=== PATIENT | male | born 1935 | race Caucasian/White ===

== ENCOUNTER 2017-07-09 12:31 | Emergency (ER) | payer MEDICARE, OTHER ==
--- NOTE | 2017-07-09 13:12 | ED Physician Chart ---
ED Chief Complaint/HPI - Patient Information Date Seen:: 07/09/17 Time Seen:: 13:00 Chief Complaint:: NOSE BLEED FOR 20 MINUTES THIS AM History of Present Illness:: His 82-year-old male presents with a history of nosebleed that started yesterday and recurred again this AM. The bleeding was exclusively from the right side. The episodes lasted an estimated 20 minutes with a fair amount of bright red blood. The bleeding was triggered by a sneeze for both events. Patient reports that he has had mild shortness of breath on exertion for the past 2 weeks. He has also noted wheezing that comes and goes and is being treated with an albuterol inhaler. He has had a cough which is nonproductive but no chest pain, fever, chills, or sweats. He had no episodes of hemoptysis. There is no active bleeding at the present time. Allergies:: Allergies Allergy/AdvReac Type Severity Reaction Status Date / Time No Known Allergies Allergy Verified 07/09/17 12:45 Vitals:: Vital Signs - 8 hr 07/09/17 12:45 Temp 98.5 F HR 74 RR 16 BP 150/70 O2 Sat % 97 ED Review of Systems - Review of Systems General/Constitutional: No fever, No chills, No weakness, No diaphoresis, No edema, No loss of appetite Skin: No skin lesions, No rash Head: No headache, No light-headedness Eyes: No loss of vision, No diplopia, Other (patient has had cataract surgery in his right eye.) ENT: No earache, No sore throat, No tinnitus Neck: No neck pain, No swelling, No stiffness, No mass noted Cardio Vascular: No chest pain, No orthopnea, No edema Pulmonary: SOB, Cough, Other (cough is nonproductive.) GI: No nausea, No vomiting, No diarrhea, No pain G/U: No dysuria, No frequency, No hematuria Musculoskeletal: No bone or joint pain, No back pain, No muscle pain Psychiatric: No depression, No anxiety, No suicidal ideation Hematopoietic: No bruising, No lymphadenopathy Allergic/Immuno: No urticaria, No angioedema Neurological: No syncope, No weakness, No paresthesia, No headache, No seizure, No confusion, No vertigo ED Past Medical History - Past Medical History Past Medical History: HTN, DM, Dyslipidemia, Other (NO HX OF HEART DS OR CHF.) Social History: Non Smoker, No Alcohol, No Drug Use, , Other (lives with his and daughter) Surgical History: other (the patient has had left shoulder surgery and right leg surgery for a dermatologic condition.) Family Medical History - Family Member Maternal History Unknown: Yes ED Physical Exam - Physical Examination General/Constitutional: Awake, Well-developed, well-nourished, Alert, No distress, Non-toxic appearing, Ambulatory Other Gen/Cons comments:: Looks 10 years younger than his stated age of 82. Head: Atraumatic Eyes: EOMI Other Eyes comments:: Patient had hyperemia of the left eye and a cataract was visible in the left eye. The pupil of the right eye was small and a reflection off a lens implant is present. Skin: No rash, No skin lesions, No ecchymosis, Well hydrated, No lymphadenopathy ENMT: External ears, nose nl, Lips, teeth, gums nl, Oropharynx nl, Tonsils nl Other ENMT comments:: The patient had a tissue paper wad in the right nare. It was removed with forceps to allow for complete inspection. There was no active bleeding and the source of the bleeding could not be identified. No polyps were noted. There was no blood or evidence of bleeding noted in the posterior pharynx. Neck: Nontender, Full ROM w/o pain, No JVD, No nuchal rigidity, No bruit, No mass, No stridor Respiratory: Nl effort/Exclusion Other Respiratory comments:: The patient had rales in both the right and the left base but were more prominent on the right side. No wheezing was present. Cardio Vascular: RRR, No murmur, gallop, rubs, NL S1 S2 Other Cardio Vascular comments:: Excellent pulses in all 4 extremities. GI: No tenderness/rebounding/guarding, No organomegaly, No hernia, Normal BS's, No mass/bruits, No McBurney tenderness Other GI comments:: Rectal examination was deferred at my discretion. There were no surgical scars on the abdomen. : No CVA tenderness Extremities: No tenderness or effusion, Full ROM, normal strength in all extremities, No edema, Normal digits & nails Neuro/Psych: Alert/oriented, Normal sensory exam, Normal motor strength, Judgement/insight normal, Mood normal, Normal gait, No focal deficits Misc: Normal back, No paraspinal tenderness ED Labs/Radiology/EKG Results - Lab Results Results: Single view PA chest x-ray: No cardiomegaly and no congestive failure. No pneumothorax or pleural effusion. No areas of pulmonary consolidation or infiltrate. Impression: No acute cardiopulmonary findings. Accu-Chek showed a glucose of 133. This is mildly elevated and of no clinical significance. ED Assessment - Assessment General Assessment: CASE SUMMARY: This 82-year-old male came to the emergency department because of 2 episodes of nosebleeds yesterday and today. Both episodes spontaneously resolved after approximately 20 minutes. On physical examination the patient was in no distress and there is no active bleeding detected. Chest x-ray was obtained due to the patient's cough and shortness of breath over the past 10 days. Chest x-ray showed no cardiomegaly, pulmonary infiltrates or areas of pulmonary consolidation. Patient was discharged with instructions to discontinue his daily aspirin for 3-4 days. He was further advised to stop taking the Cipro which had been prescribed for possible pneumonia. I did recommend that the patient go to a drug store and buy some [id number] Jareth- Synephrine. This can be used along with pressure over the side of the nose. Patient should follow-up with his health inpatient care manager rn physician this coming week for any further epistaxis, increased cough or difficulty breathing. Should continue to use the albuterol inhaler as prescribed. Discharged in stable condition. Return to the emergency department for any nosebleed lasting longer than 15 minutes or any increased respiratory distress or wheezing. MDM DDX FOR EPISTAXIS: NOT traumatic epistaxis based on pt's history. NOT nasal polyp based on physical exam. NOT Coagulopathy based on the patient's history and physical examination. ( No history of easy bruising, other excessive bleeding, and no petechiae or a ecchymotic findings on the skin.) ED Septic Shock - . Is Septic Shock (SBP<90, OR Lactate>4 mmol\L) present?: No - <6hrs of presentation: Vital Signs: Vital Signs - 8 hr 07/09/17 12:45 Temp 98.5 F HR 74 RR 16 BP 150/70 O2 Sat % 97 ED Reassessment (Disposition) - Reassessment Reassessment Condition:: Unchanged - Diagnosis Diagnosis:: EPISTAXIS, RESOLVED, HYPERTENSION, DIABETES - Aftercare/Follow up Instructions Aftercare/Follow-Up Instructions:: Counseled pt regarding lab results/diagnosis & need follow up ED Discharge Plan - Patient Disposition Admit/Discharge/Transfer: PT DISCHARGED HOME Condition at Disposition: Improved Instructions: Type 2 Diabetes Mellitus, Adult, Nosebleed
--- NOTE | 2017-07-10 08:26 | Diagnostic Imaging Report ---
Portable chest x-ray Time: 1406 hours History: Cough Allowing for portable technique the heart size is normal. No focal pulmonary parenchymal processes. No hilar or mediastinal abnormalities. Impression: No acute abnormalities.
== END 2017-07-09 14:41 | disposition home or self-care (01) ==
LOC: ER 12:31
DX: R04.0 Epistaxis (principal); I10 Essential (primary) hypertension; E11.9 Type 2 diabetes mellitus without complications; E78.5 Hyperlipidemia, unspecified
CPT/HCPCS: 71010-TC; 82948-90; Z7502